=== PATIENT | male | born 1985 | race Caucasian/White ===

== ENCOUNTER 2023-11-08 11:20 | Emergency (ER) | payer OTHER ==
[~2023-11-08] VITALS: Ht 177.8 cm; Wt 101.0 kg
[2023-11-08 11:23] VITALS: BP 116/67; PULSE 115; RESP 16; TEMP 98.2; O2SAT 98
[2023-11-08] MEDS ORDERED: KETOROLAC 30MG/ML VIAL IM ONE (12:00)
== END 2023-11-08 16:35 | disposition left against medical advice (07) ==
LOC: ER 11:20
DX: M25.561 Pain in right knee (principal); F10.20 Alcohol dependence, uncomplicated; Y90.9 Presence of alcohol in blood, level not specified
CPT/HCPCS: 99283

== ENCOUNTER 2023-11-08 15:10 | Emergency (ER) | payer MEDICAID, OTHER ==
[~2023-11-08] VITALS: Ht 182.9 cm; Wt 100.0 kg
[2023-11-08 15:13] VITALS: BP 115/67; PULSE 105; RESP 16; TEMP 98; O2SAT 95
== END 2023-11-09 00:12 | disposition left against medical advice (07) ==
LOC: ER 15:10
DX: R07.89 Other chest pain (principal); Z53.21 Procedure and treatment not carried out due to patient leaving prior to being seen by health care provider

== ENCOUNTER 2023-11-09 09:37 | Emergency (ER) | payer MEDICAID, OTHER ==
[~2023-11-09] VITALS: Ht 172.7 cm; Wt 85.0 kg
[2023-11-09 09:39] VITALS: BP 127/76; PULSE 112; RESP 16; TEMP 97.5; O2SAT 94
== END 2023-11-09 12:15 | disposition left against medical advice (07) ==
LOC: ER 09:37
DX: R06.02 Shortness of breath (principal); R07.9 Chest pain, unspecified; Z53.21 Procedure and treatment not carried out due to patient leaving prior to being seen by health care provider
CPT/HCPCS: 93005

== ENCOUNTER 2023-11-25 20:46 | Emergency (ER) | payer OTHER ==
[~2023-11-25] VITALS: Ht 177.8 cm; Wt 80.0 kg
[2023-11-25 20:49] VITALS: O2SAT 98
[2023-11-25] MEDS: KETOROLAC 30MG/ML VIAL IM ONE (22:53)
[2023-11-25] MEDS: ACETAMINOPHEN 325MG TABLET PO ONE (22:53)
[2023-11-26 00:18] LABS: CHLORIDE 109 mEq/L (98-107); POTASSIUM 3.6 mEq/L (3.5-5.1); SODIUM 146 mEq/L (136-145)
[2023-11-26 00:19] LABS: CALCIUM 8.3 mg/dL (8.7-10.4); CARBON DIOXIDE 29 mEq/L (21-32)
[2023-11-26 00:20] LABS: HEMOGLOBIN. 8.4 g/dL (14.0-18.0); MEAN CORPUSCULAR HEMOGLOBIN 29.4 pg (28.0-32.0); MEAN CORPUSCULAR HGB CONC 33.7 g/dL (31.0-37.0); MEAN CORPUSCULAR VOLUME 87.4 fL (80.0-94.0); MEAN PLATELET VOLUME 8.4 fl (7.4-10.4); PLATELET 100 x1000/uL (130-400); RED BLOOD CELL COUNT 2.87 mill/uL (4.7-6.1)
[2023-11-26 00:24] LABS: CREATININE 0.7 mg/dL (0.6-1.3); GLUCOSE 96 mg/dL (70-105); UREA NITROGEN BLOOD 6 mg/dL (9-23)
[2023-11-26 00:25] LABS: DIFFERENTIAL COMMENT 1
[2023-11-26 00:26] LABS: ALANINE AMINOTRANSFERASE 47 IU/L (10-49); ASPARTATE AMINOTRANSFERASE 157 IU/L (<34); BILIRUBIN TOTAL 3.3 mg/dL (0.1-1.0)
[2023-11-26 00:49] LABS: ANISOCYTOSIS 1+; PLATELET ESTIMATE DECREASED
[2023-11-26 00:53] VITALS: BP 113/71; PULSE 62; RESP 18; TEMP 37.00296; O2SAT 98
== END 2023-11-26 01:08 | disposition home or self-care (01) ==
LOC: ER 20:46
DX: S82.141A Displaced bicondylar fracture of right tibia, initial encounter for closed fracture (principal); F10.129 Alcohol abuse with intoxication, unspecified; Y90.9 Presence of alcohol in blood, level not specified; X58.XXXA Exposure to other specified factors, initial encounter; Y93.89 Activity, other specified; Y92.89 Other specified places as the place of occurrence of the external cause; Y99.8 Other external cause status
CPT/HCPCS: 99284; 80053; 85025; 36415; 73562; 96372; J1885; L1830

== ENCOUNTER 2023-11-26 17:19 | Emergency (ER) | payer OTHER ==
[~2023-11-26] VITALS: Ht 165.1 cm; Wt 77.0 kg
[2023-11-26 17:23] VITALS: BP 132/77; PULSE 104; RESP 18; TEMP 97.6; O2SAT 100
== END 2023-11-27 00:58 | disposition home or self-care (01) ==
LOC: ER 17:19
DX: M25.561 Pain in right knee (principal); F10.129 Alcohol abuse with intoxication, unspecified; Y90.9 Presence of alcohol in blood, level not specified
CPT/HCPCS: 99283

== ENCOUNTER 2023-11-27 00:22 | Emergency (ER) | payer OTHER ==
[~2023-11-27] VITALS: Ht 170.2 cm; Wt 91.0 kg
[2023-11-27 00:28] VITALS: BP 162/104; PULSE 86; O2SAT 97
[2023-11-27 01:30] VITALS: RESP 17
== END 2023-11-27 01:30 | disposition home or self-care (01) ==
LOC: ER 00:22
DX: M25.561 Pain in right knee (principal); K76.9 Liver disease, unspecified; Z86.59 Personal history of other mental and behavioral disorders
CPT/HCPCS: 99283; Z7610

== ENCOUNTER 2023-11-27 07:05 | Emergency (ER) | payer OTHER ==
[~2023-11-27] VITALS: Ht 172.7 cm; Wt 85.0 kg
[2023-11-27 07:23] VITALS: BP 140/81; PULSE 76; RESP 18; TEMP 98.4; O2SAT 98
[2023-11-27] MEDS ORDERED: IBUPROFEN 600MG TABLET PO ONE (08:00)
== END 2023-11-27 08:10 | disposition home or self-care (01) ==
LOC: ER 07:10
DX: G89.29 Other chronic pain (principal); M25.561 Pain in right knee; Z86.59 Personal history of other mental and behavioral disorders
CPT/HCPCS: 99283

== ENCOUNTER 2023-12-04 14:23 | Emergency (ER) | payer OTHER ==
[~2023-12-04] VITALS: Ht 175.3 cm; Wt 82.0 kg
[2023-12-04 14:24] VITALS: BP 115/69; PULSE 103; RESP 12; TEMP 97.8; O2SAT 98
[2023-12-04 14:56] LABS: HEMATOCRIT. 34.2 % (42.0-52.0); HEMOGLOBIN. 10.3 g/dL (14.0-18.0); MEAN CORPUSCULAR HEMOGLOBIN 29.1 pg (28.0-32.0); MEAN CORPUSCULAR HGB CONC 30.2 g/dL (31.0-37.0); MEAN CORPUSCULAR VOLUME 96.4 fL (80.0-94.0); PLATELET 89 x1000/uL (130-400); RED BLOOD CELL COUNT 3.55 mill/uL (4.7-6.1); RED CELL DISTRIBUTION WIDTH 21.5 % (11.6-14.6)
[2023-12-04 14:57] LABS: DIFFERENTIAL COMMENT 1
[2023-12-04 14:59] LABS: CHLORIDE 103 mEq/L (98-107); POTASSIUM 4.2 mEq/L (3.5-5.1); SODIUM 132 mEq/L (136-145)
[2023-12-04 15:00] LABS: CARBON DIOXIDE 22 mEq/L (21-32)
[2023-12-04 15:01] LABS: CALCIUM 8.6 mg/dL (8.7-10.4)
[2023-12-04 15:05] LABS: CREATININE 0.9 mg/dL (0.6-1.3); GLUCOSE 117 mg/dL (70-105); UREA NITROGEN BLOOD 11 mg/dL (9-23)
[2023-12-04 15:06] LABS: ETHANOL BLOOD 297 mg/dL (<10)
[2023-12-04 15:46] LABS: ANISOCYTOSIS 3+; PLATELET ESTIMATE DECREASED; TEAR DROP CELLS 1+
== END 2023-12-04 20:00 | disposition home or self-care (01) ==
LOC: ER 14:23
DX: F10.129 Alcohol abuse with intoxication, unspecified (principal); Z86.59 Personal history of other mental and behavioral disorders; Y90.8 Blood alcohol level of 240 mg/100 ml or more
CPT/HCPCS: 36415; 80048; 80320; 85025; 99283; G0480

== ENCOUNTER 2023-12-06 01:15 | Emergency (ER) | payer OTHER ==
[~2023-12-06] VITALS: Ht 177.8 cm; Wt 84.0 kg
[2023-12-06 01:21] VITALS: TEMP 97.9; O2SAT 99
[2023-12-06] MEDS ORDERED: KETOROLAC 15MG/ML VIAL IM ONE (02:00)
[2023-12-06 02:13] LABS: HEMATOCRIT. 29.5 % (42.0-52.0); HEMOGLOBIN. 9.5 g/dL (14.0-18.0); MEAN CORPUSCULAR HGB CONC 32.1 g/dL (31.0-37.0); MEAN CORPUSCULAR VOLUME 90.3 fL (80.0-94.0); MEAN PLATELET VOLUME 9.2 fl (7.4-10.4); PLATELET 81 x1000/uL (130-400); RED BLOOD CELL COUNT 3.27 mill/uL (4.7-6.1); RED CELL DISTRIBUTION WIDTH 20.6 % (11.6-14.6); WHITE BLOOD COUNT 4.2 x1000/uL (4.5-11.0)
[2023-12-06 02:17] LABS: DIFFERENTIAL COMMENT 1
[2023-12-06 02:27] VITALS: BP 121/69; PULSE 84; RESP 18
[2023-12-06] MEDS: KETOROLAC 15MG/ML VIAL IM NR (02:27)
[2023-12-06 02:29] LABS: CHLORIDE 106 mEq/L (98-107); POTASSIUM 4.1 mEq/L (3.5-5.1); SODIUM 140 mEq/L (136-145)
[2023-12-06 02:30] LABS: CALCIUM 8.5 mg/dL (8.7-10.4); CARBON DIOXIDE 29 mEq/L (21-32)
[2023-12-06 02:35] LABS: CREATININE 0.8 mg/dL (0.6-1.3); GLUCOSE 109 mg/dL (70-105); UREA NITROGEN BLOOD 13 mg/dL (9-23)
[2023-12-06 02:37] LABS: ALANINE AMINOTRANSFERASE 49 IU/L (10-49); ALBUMIN 3.2 g/dL (3.2-4.8); ASPARTATE AMINOTRANSFERASE 140 IU/L (<34)
[2023-12-06 02:38] LABS: BILIRUBIN TOTAL 2.9 mg/dL (0.1-1.0); PROTEIN TOTAL 7.6 g/dL (6.0-8.3)
[2023-12-06 02:45] LABS: ETHANOL BLOOD 288 mg/dL (<10)
[2023-12-06 03:10] LABS: PLATELET ESTIMATE DECREASED
== END 2023-12-06 04:24 | disposition home or self-care (01) ==
LOC: ER 01:15
DX: G89.29 Other chronic pain (principal); M25.561 Pain in right knee; F10.20 Alcohol dependence, uncomplicated; Y90.8 Blood alcohol level of 240 mg/100 ml or more
CPT/HCPCS: 80053; 80320; 85025; 36415; 99283; J1885; G0480

== ENCOUNTER 2023-12-14 23:27 | Emergency (ER) | payer OTHER ==
[~2023-12-14] VITALS: Ht 172.7 cm; Wt 105.0 kg
[2023-12-14 23:28] VITALS: TEMP 98.3; O2SAT 98
[2023-12-15 00:46] VITALS: BP 111/75; PULSE 90; RESP 13; O2SAT 95
== END 2023-12-15 01:29 | disposition home or self-care (01) ==
LOC: ER 23:27
DX: M25.561 Pain in right knee (principal); F10.20 Alcohol dependence, uncomplicated; Y90.9 Presence of alcohol in blood, level not specified
CPT/HCPCS: 99283

== ENCOUNTER 2023-12-15 19:44 | Emergency (ER) | payer OTHER ==
[~2023-12-15] VITALS: Ht 177.8 cm; Wt 100.0 kg
[2023-12-15 19:47] VITALS: BP 124/80; PULSE 94; RESP 18; TEMP 97.8; O2SAT 98
[2023-12-15 21:26] LABS: HEMATOCRIT. 32.1 % (42.0-52.0); HEMOGLOBIN. 10.3 g/dL (14.0-18.0); MEAN CORPUSCULAR HEMOGLOBIN 30.1 pg (28.0-32.0); MEAN CORPUSCULAR HGB CONC 32.1 g/dL (31.0-37.0); MEAN CORPUSCULAR VOLUME 93.8 fL (80.0-94.0); MEAN PLATELET VOLUME 9.4 fl (7.4-10.4); PLATELET 130 x1000/uL (130-400); RED BLOOD CELL COUNT 3.42 mill/uL (4.7-6.1); RED CELL DISTRIBUTION WIDTH 22.4 % (11.6-14.6); WHITE BLOOD COUNT 5.2 x1000/uL (4.5-11.0)
[2023-12-15 21:27] LABS: DIFFERENTIAL COMMENT 1
[2023-12-15 21:34] LABS: CHLORIDE 113 mEq/L (98-107); POTASSIUM 4.7 mEq/L (3.5-5.1); SODIUM 144 mEq/L (136-145)
[2023-12-15 21:35] LABS: CALCIUM 7.9 mg/dL (8.7-10.4); CARBON DIOXIDE 26 mEq/L (21-32)
[2023-12-15 21:40] LABS: CREATININE 0.8 mg/dL (0.6-1.3); ETHANOL BLOOD 300 mg/dL (<10); GLUCOSE 103 mg/dL (70-105); UREA NITROGEN BLOOD 7 mg/dL (9-23)
[2023-12-15 21:41] LABS: ALANINE AMINOTRANSFERASE 44 IU/L (10-49)
[2023-12-15 21:42] LABS: ALBUMIN 3.3 g/dL (3.2-4.8); ASPARTATE AMINOTRANSFERASE 137 IU/L (<34); BILIRUBIN DIRECT 1.5 mg/dL (<=3.0); BILIRUBIN TOTAL 2.6 mg/dL (0.1-1.0); PROTEIN TOTAL 7.7 g/dL (6.0-8.3)
[2023-12-15 22:02] LABS: PLATELET ESTIMATE NORMAL
[2023-12-16 00:51] LABS: INR 1.3; PROTHROMBIN TIME 14.1 sec (9.6-11.0)
[2023-12-16 02:42] LABS: CLARITY URINE CLEAR (CLEAR); COLOR URINE DARK YELLOW (YELLOW); GLUCOSE URINE NEGATIVE (NEGATIVE); KETONES URINE NEGATIVE (NEGATIVE); LEUKOCYTE ESTERASE URINE NEGATIVE (NEGATIVE); NITRITE URINE NEGATIVE (NEGATIVE); OCCULT BLOOD URINE NEGATIVE (NEGATIVE); PROTEIN URINE NEGATIVE (NEGATIVE); SPECIFIC GRAVITY URINE 1.018 (1.005-1.030)
[2023-12-16 03:13] LABS: *AMPHETAMINES SCREEN URINE NEGATIVE (NEGATIVE); *BARBITURATES SCREEN URINE NEGATIVE (NEGATIVE); *BENZODIAZEPINES SCREEN URINE PRESUMPTIVE POSITIVE (NEGATIVE); *COCAINE SCREEN URINE NEGATIVE (NEGATIVE); CANNABINOID URINE SCREEN NEGATIVE (NEGATIVE); ECSTASY MDMA SCREEN URINE NEGATIVE (NEGATIVE); METHADONE URINE SCREEN NEGATIVE (NEGATIVE); OPIATES URINE SCREEN NEGATIVE (NEGATIVE); PHENCYCLIDINE URINE SCREEN NEGATIVE (NEGATIVE)
== END 2023-12-16 05:35 | disposition home or self-care (01) ==
LOC: ER 19:44
DX: R53.1 Weakness (principal)
CPT/HCPCS: 36415; 73560; 80048; 80076; 80305; 80320; 81003; 85025; 99284; G0480

== ENCOUNTER 2023-12-30 00:41 | Emergency (ER) | payer OTHER ==
[~2023-12-30] VITALS: Ht 172.7 cm; Wt 79.0 kg
[~2023-12-30 00:41] MED LIST: FOLI-43 PO; LEVO25TA7 MT; MULT-624 MT; THIA100T72 PO
[2023-12-30 00:46] VITALS: BP 119/70; PULSE 95; RESP 18; TEMP 97.8; O2SAT 97
[2023-12-30] MEDS ORDERED: IBUPROFEN 800MG TABLET PO ONE (01:00)
[2023-12-30] MEDS ORDERED: IBUP-2030 MT (05:56)
== END 2023-12-30 07:00 | disposition home or self-care (01) ==
LOC: ER 01:05
DX: G89.29 Other chronic pain (principal); M25.561 Pain in right knee; W18.30XA Fall on same level, unspecified, initial encounter; Y93.89 Activity, other specified; Y92.89 Other specified places as the place of occurrence of the external cause; Y99.8 Other external cause status
CPT/HCPCS: 73562; 99283

== ENCOUNTER 2024-03-14 05:34 | Emergency (ER) | payer OTHER ==
[~2024-03-14] VITALS: Ht 177.8 cm; Wt 86.0 kg
[~2024-03-14 05:34] MED LIST changes: +ACET-2708 MT; +IBUP-2028 MT; +IBUP-2029 MT; +IBUP-2030 MT
[2024-03-14 05:36] VITALS: BP 126/82; PULSE 100; RESP 18; TEMP 98.7; O2SAT 100
== END 2024-03-14 10:46 | disposition home or self-care (01) ==
LOC: ER 05:34
DX: F10.20 Alcohol dependence, uncomplicated (principal); Z59.00 Homelessness unspecified; Z79.890 Hormone replacement therapy; Y90.9 Presence of alcohol in blood, level not specified
CPT/HCPCS: 99283

== ENCOUNTER 2024-03-17 21:44 | Emergency (ER) | payer OTHER ==
[~2024-03-17] VITALS: Ht 172.7 cm; Wt 110.0 kg
[2024-03-17 21:56] VITALS: BP 127/77; PULSE 101; RESP 16; TEMP 97.9; O2SAT 97
== END 2024-03-18 02:04 | disposition home or self-care (01) ==
LOC: ER 21:44
DX: F10.229 Alcohol dependence with intoxication, unspecified (principal); G44.209 Tension-type headache, unspecified, not intractable; Z79.890 Hormone replacement therapy; Z79.899 Other long term (current) drug therapy; Y90.9 Presence of alcohol in blood, level not specified
CPT/HCPCS: 99284

== ENCOUNTER 2024-03-19 19:35 | Emergency (ER) | payer OTHER ==
[~2024-03-19] VITALS: Ht 175.3 cm; Wt 81.0 kg
[2024-03-19 19:50] VITALS: BP 178/98; PULSE 96; RESP 16; O2SAT 99
[2024-03-19 22:23] VITALS: TEMP 100.6
[2024-03-19] MEDS: ACETAMINOPHEN 325MG TABLET PO STA (22:23)
[2024-03-20] MEDS ORDERED: ACET-2708 MT (01:21)
== END 2024-03-20 01:50 | disposition home or self-care (01) ==
LOC: ER 19:35
DX: R09.81 Nasal congestion (principal); J06.9 Acute upper respiratory infection, unspecified; E11.9 Type 2 diabetes mellitus without complications; F10.90 Alcohol use, unspecified, uncomplicated; I10 Essential (primary) hypertension; K74.60 Unspecified cirrhosis of liver; Z79.890 Hormone replacement therapy; Y90.9 Presence of alcohol in blood, level not specified
CPT/HCPCS: 71045; 99283

== ENCOUNTER 2024-04-14 20:27 | Emergency (ER) | payer OTHER ==
[~2024-04-14] VITALS: Ht 172.7 cm
[2024-04-14 20:31] VITALS: BP 129/81; PULSE 95; RESP 16; TEMP 36.7; O2SAT 100
[2024-04-14] MEDS: FOLIC ACID/VITAMIN B COMP W-C TABLET PO SCH (21:00)
[2024-04-14] MEDS: SODIUM CHLORIDE 0.9% 1,000 ML IV ONE (21:00)
[2024-04-15 01:05] LABS: BASOPHILS % 1.8 % (0.0-2.0); HEMATOCRIT. 26.9 % (42.0-52.0); LYMPHOCYTES % 29.7 % (20.0-50.0); MEAN CORPUSCULAR HEMOGLOBIN 27.7 pg (28.0-32.0); MEAN CORPUSCULAR HGB CONC 33.3 g/dL (31.0-37.0); MONOCYTES % 10.1 % (2.0-8.0); NEUTROPHILS % 47.4 % (40.0-76.0); RED BLOOD CELL COUNT 3.25 mill/uL (4.7-6.1); RED CELL DISTRIBUTION WIDTH 29.5 % (11.6-14.6)
[2024-04-15 01:08] LABS: CHLORIDE 110 mEq/L (98-107); POTASSIUM 3.7 mEq/L (3.5-5.1); SODIUM 143 mEq/L (136-145)
[2024-04-15 01:09] LABS: CARBON DIOXIDE 25 mEq/L (21-32)
[2024-04-15 01:10] LABS: CALCIUM 8.4 mg/dL (8.7-10.4)
[2024-04-15 01:14] LABS: CREATININE 0.7 mg/dL (0.6-1.3); GLUCOSE 90 mg/dL (70-105)
[2024-04-15 01:15] LABS: DIFFERENTIAL COMMENT 1; ETHANOL BLOOD 241 mg/dL (<10); UREA NITROGEN BLOOD 7 mg/dL (9-23)
[2024-04-15 01:16] LABS: AMMONIA 35 uMol/L (<32)
[2024-04-15 05:21] LABS: MEAN PLATELET VOLUME 8.7 fl (7.4-10.4); PLATELET 88 x1000/uL (130-400)
== END 2024-04-15 05:33 | disposition home or self-care (01) ==
LOC: ER 20:27
DX: F10.129 Alcohol abuse with intoxication, unspecified (principal); I10 Essential (primary) hypertension; E11.9 Type 2 diabetes mellitus without complications; E72.20 Disorder of urea cycle metabolism, unspecified; Z79.899 Other long term (current) drug therapy; Z86.59 Personal history of other mental and behavioral disorders; Y90.9 Presence of alcohol in blood, level not specified
CPT/HCPCS: 36415; 99283; 80048; 80320; 82140; 83690; 85025; J7030; Z7610 ×2; G0480

== ENCOUNTER 2024-04-16 21:13 | Emergency (ER) | payer OTHER ==
[~2024-04-16] VITALS: Ht 167.6 cm; Wt 82.0 kg
[2024-04-16 21:17] VITALS: BP 123/80; PULSE 98; RESP 14; TEMP 37.1; O2SAT 98
[2024-04-16 23:37] LABS: BASOPHILS % 1.3 % (0.0-2.0); EOSINOPHILS % 10.4 % (0.0-5.0); HEMATOCRIT. 27.8 % (42.0-52.0); HEMOGLOBIN. 9.1 g/dL (14.0-18.0); LYMPHOCYTES % 30.3 % (20.0-50.0); MEAN CORPUSCULAR HEMOGLOBIN 27.7 pg (28.0-32.0); MEAN CORPUSCULAR HGB CONC 32.8 g/dL (31.0-37.0); MEAN CORPUSCULAR VOLUME 84.5 fL (80.0-94.0); RED BLOOD CELL COUNT 3.29 mill/uL (4.7-6.1); RED CELL DISTRIBUTION WIDTH 29.5 % (11.6-14.6); WHITE BLOOD COUNT 4.5 x1000/uL (4.5-11.0)
[2024-04-16 23:38] LABS: CHLORIDE 111 mEq/L (98-107); POTASSIUM 3.5 mEq/L (3.5-5.1); SODIUM 147 mEq/L (136-145)
[2024-04-16 23:39] LABS: CALCIUM 7.7 mg/dL (8.7-10.4); CARBON DIOXIDE 27 mEq/L (21-32)
[2024-04-16 23:44] LABS: CREATININE 0.7 mg/dL (0.6-1.3); GLUCOSE 102 mg/dL (70-105)
[2024-04-16 23:46] LABS: ALANINE AMINOTRANSFERASE 35 IU/L (10-49); ALBUMIN 2.6 g/dL (3.2-4.8); ASPARTATE AMINOTRANSFERASE 124 IU/L (<34); BILIRUBIN DIRECT 1.4 mg/dL (<=3.0); BILIRUBIN TOTAL 2.4 mg/dL (0.1-1.0)
[2024-04-16 23:47] LABS: PROTEIN TOTAL 8.4 g/dL (6.0-8.3)
[2024-04-17 00:03] LABS: DIFFERENTIAL COMMENT 1
[2024-04-17 00:06] LABS: UREA NITROGEN BLOOD < 5 mg/dL (9-23)
[2024-04-17 05:24] LABS: MEAN PLATELET VOLUME 8.8 fl (7.4-10.4); PLATELET 91 x1000/uL (130-400)
== END 2024-04-17 03:31 | disposition home or self-care (01) ==
LOC: ER 21:13
DX: F10.129 Alcohol abuse with intoxication, unspecified (principal); E11.9 Type 2 diabetes mellitus without complications; I10 Essential (primary) hypertension; Z79.899 Other long term (current) drug therapy; Y90.9 Presence of alcohol in blood, level not specified
CPT/HCPCS: 36415; 80053; 80076; 85025; 99283

== ENCOUNTER 2024-09-14 01:27 | Emergency (ER) | payer OTHER ==
[~2024-09-14] VITALS: Ht 172.7 cm; Wt 100.0 kg
[~2024-09-14 01:27] MED LIST changes: +CARV3.1242 PO; +CHOL100046 PO; +COR3 PO; +DICL100G58 TP; +FURO-152 PO; +FURO40TA5 PO; +GABA300S4 PO; -IBUP-2028 MT; -IBUP-2029 MT; -IBUP-2030 MT; +LACT10SO7 PO; +LACT10SO81 MT; +MULT-1318 PO; +PANT40TA51 MT; +RIFA550T PO; +SPIR100T5 PO; +SPIR25TA6 PO; +THIA100T88 PO; +VITA100T PO
[2024-09-14 01:38] VITALS: O2SAT 99
[2024-09-14 05:45] LABS: HEMATOCRIT. 32.3 % (42.0-52.0); HEMOGLOBIN. 10.7 g/dL (14.0-18.0); MEAN PLATELET VOLUME 9.6 fl (7.4-10.4); PLATELET 82 x1000/uL (130-400); RED BLOOD CELL COUNT 3.46 mill/uL (4.7-6.1); RED CELL DISTRIBUTION WIDTH 17.9 % (11.6-14.6)
[2024-09-14 06:00] LABS: CREATININE 0.6 mg/dL (0.6-1.3); UREA NITROGEN BLOOD 5 mg/dL (9-23)
[2024-09-14 06:26] LABS: ETHANOL BLOOD 291 mg/dL (<10)
[2024-09-14 06:58] VITALS: BP 145/95; PULSE 85; RESP 18; TEMP 36.8; O2SAT 99
[2024-09-14 08:47] LABS: BAND% 1.0 % (1.0-6.0); BASOPHILS % MANUAL 1.0 % (0.0-2.0); EOSINOPHILS % MANUAL 4.0 % (0.0-5.0); LYMPHOCYTES % MANUAL 29.0 % (20.0-50.0); MONOCYTES % MANUAL 16.0 % (2.0-8.0); NEUTROPHILS % MANUAL 49.0 % (45.0-75.0)
[2024-09-14 08:52] LABS: PLATELET ESTIMATE DECREASED
[2024-09-15] MEDS ORDERED: LACT-390 PO (05:32)
[2024-09-15] MEDS ORDERED: CONSTULOSE (05:32)
== END 2024-09-14 07:01 | disposition home or self-care (01) ==
LOC: ER 01:27
DX: F10.229 Alcohol dependence with intoxication, unspecified (principal); Z00.00 Encounter for general adult medical examination without abnormal findings; Z79.899 Other long term (current) drug therapy; Y90.8 Blood alcohol level of 240 mg/100 ml or more
CPT/HCPCS: 36415; 80048; 80307; 80320; 80329; 82550; 85025; 99283; G0480

== ENCOUNTER 2024-09-14 09:46 | Emergency (ER) | payer OTHER ==
[~2024-09-14] VITALS: Ht 177.8 cm; Wt 85.0 kg
[2024-09-14 09:48] VITALS: BP 134/74; PULSE 110; RESP 18; TEMP 37; O2SAT 98
[2024-09-14 10:25] LABS: BASOPHILS % 1.3 % (0.0-2.0); EOSINOPHILS % 6.8 % (0.0-5.0); HEMATOCRIT. 33.4 % (42.0-52.0); HEMOGLOBIN. 11.2 g/dL (14.0-18.0); LYMPHOCYTES % 24.4 % (20.0-50.0); MEAN PLATELET VOLUME 8.3 fl (7.4-10.4); MONOCYTES % 13.6 % (2.0-8.0); NEUTROPHILS % 53.9 % (40.0-76.0); PLATELET 90 x1000/uL (130-400); RED BLOOD CELL COUNT 3.62 mill/uL (4.7-6.1); RED CELL DISTRIBUTION WIDTH 17.9 % (11.6-14.6)
[2024-09-14 10:34] LABS: CREATININE 0.7 mg/dL (0.6-1.3)
[2024-09-14 10:35] LABS: ETHANOL BLOOD 258 mg/dL (<10); UREA NITROGEN BLOOD 6 mg/dL (9-23)
[2024-09-14 10:36] LABS: ASPARTATE AMINOTRANSFERASE 65 IU/L (<34)
[2024-09-14 10:37] LABS: BILIRUBIN DIRECT 1.3 mg/dL (<=3.0); BILIRUBIN TOTAL 2.8 mg/dL (0.1-1.0); PROTEIN TOTAL 7.3 g/dL (6.0-8.3)
[2024-09-15] MEDS ORDERED: CONSTULOSE (05:32)
[2024-09-15] MEDS ORDERED: LACT-390 PO (05:32)
== END 2024-09-14 11:18 | disposition left against medical advice (07) ==
LOC: ER 09:46 → ENRESERV 15:54
DX: F10.129 Alcohol abuse with intoxication, unspecified (principal); D69.6 Thrombocytopenia, unspecified; Z79.899 Other long term (current) drug therapy; Y90.8 Blood alcohol level of 240 mg/100 ml or more
CPT/HCPCS: 36415; 80048; 80076; 80320; 85025; 99283; G0480

== ENCOUNTER 2024-09-15 17:26 | Emergency (ER) | payer OTHER ==
[~2024-09-15] VITALS: Ht 170.2 cm; Wt 82.0 kg
[~2024-09-15 17:26] MED LIST changes: +CONSTULOSE; -DICL100G58 TP; -FURO40TA5 PO; +LACT-390 PO; -LACT10SO7 PO; -MULT-1318 PO; -THIA100T88 PO
[2024-09-15 17:31] VITALS: O2SAT 98
[2024-09-15] MEDS: SODIUM CHLORIDE 0.9% 1,000 ML IV ONE (17:45)
[2024-09-15 19:23] LABS: HEMATOCRIT. 28.6 % (42.0-52.0); HEMOGLOBIN. 9.8 g/dL (14.0-18.0); MEAN PLATELET VOLUME 9.2 fl (7.4-10.4); PLATELET 76 x1000/uL (130-400); RED BLOOD CELL COUNT 3.15 mill/uL (4.7-6.1); RED CELL DISTRIBUTION WIDTH 17.4 % (11.6-14.6)
[2024-09-15 19:25] LABS: CREATININE 0.8 mg/dL (0.6-1.3); UREA NITROGEN BLOOD 6 mg/dL (9-23)
[2024-09-15 19:26] LABS: TROPONIN I HIGH SENSITIVITY < 4 ng/L (3.0-53)
[2024-09-15 19:45] LABS: EOSINOPHILS % MANUAL 13.0 % (0.0-5.0); LYMPHOCYTES % MANUAL 25.0 % (20.0-50.0); MONOCYTES % MANUAL 12.0 % (2.0-8.0); NEUTROPHILS % MANUAL 50.0 % (45.0-75.0); PLATELET ESTIMATE DECREASED
[2024-09-15 20:15] VITALS: BP 106/60; PULSE 94; RESP 16; TEMP 36.7; O2SAT 98
== END 2024-09-16 05:04 | disposition home or self-care (01) ==
LOC: ER 17:26
DX: F10.129 Alcohol abuse with intoxication, unspecified (principal); M17.11 Unilateral primary osteoarthritis, right knee; I10 Essential (primary) hypertension; Z79.899 Other long term (current) drug therapy; Y90.9 Presence of alcohol in blood, level not specified
CPT/HCPCS: 80048; 80320; 85025; 84484; 36415; 96360; 99283; J7030; G0480

== ENCOUNTER 2024-09-20 20:01 | Emergency (ER) | payer OTHER ==
[~2024-09-20] VITALS: Ht 175.3 cm; Wt 101.0 kg
[~2024-09-20 20:01] MED LIST changes: +DICL100G58 TP; +FURO40TA5 PO; +LACT10SO7 PO; +MULT-1318 PO; +THIA100T88 PO
[2024-09-20 20:09] VITALS: TEMP 36.5; O2SAT 99
[2024-09-20 23:14] VITALS: BP 143/77; PULSE 98; RESP 18
[2024-09-20] MEDS: KETOROLAC 15MG/ML VIAL IM ONE (23:14)
[2024-09-20] MEDS ORDERED: NAPR-1176 MT (23:25)
== END 2024-09-21 00:56 | disposition home or self-care (01) ==
LOC: ER 20:01
DX: G89.29 Other chronic pain (principal); M25.561 Pain in right knee; I10 Essential (primary) hypertension; F10.90 Alcohol use, unspecified, uncomplicated; Z79.1 Long term (current) use of non-steroidal anti-inflammatories (NSAID); Z79.890 Hormone replacement therapy; Z79.899 Other long term (current) drug therapy; Y90.9 Presence of alcohol in blood, level not specified
CPT/HCPCS: 99283; 96372; J1885

== ENCOUNTER 2024-09-22 16:46 | Emergency (ER) | payer OTHER ==
[~2024-09-22] VITALS: Ht 172.7 cm; Wt 78.0 kg
[~2024-09-22 16:46] MED LIST changes: +NAPR-1176 MT
[2024-09-22 16:51] VITALS: BP 123/74; PULSE 103; RESP 18; TEMP 37.1; O2SAT 96
== END 2024-09-22 22:50 | disposition home or self-care (01) ==
LOC: ER 16:46
DX: F10.129 Alcohol abuse with intoxication, unspecified (principal); Z79.899 Other long term (current) drug therapy; Z88.5 Allergy status to narcotic agent; Y90.8 Blood alcohol level of 240 mg/100 ml or more
CPT/HCPCS: 36415; 80320; 99283; G0480

== ENCOUNTER 2024-09-22 21:40 | Emergency (ER) | payer OTHER ==
[~2024-09-22] VITALS: Ht 177.8 cm; Wt 84.0 kg
[2024-09-22 21:56] VITALS: O2SAT 99
[2024-09-22 22:02] VITALS: BP 140/91; PULSE 104; RESP 18; TEMP 36.8; O2SAT 99
[2024-09-22] MEDS ORDERED: IBUPROFEN 600MG TABLET PO ONE (23:00)
== END 2024-09-22 23:35 | disposition left against medical advice (07) ==
LOC: ER 21:40
DX: M54.9 Dorsalgia, unspecified (principal); F10.129 Alcohol abuse with intoxication, unspecified; Z79.899 Other long term (current) drug therapy; Z88.5 Allergy status to narcotic agent
CPT/HCPCS: 99282

== ENCOUNTER 2024-09-24 11:40 | Emergency (ER) | payer OTHER ==
[~2024-09-24] VITALS: Ht 172.7 cm; Wt 84.0 kg
[2024-09-24 11:43] VITALS: O2SAT 98
[2024-09-24 12:13] VITALS: BP 147/87; PULSE 109; RESP 21; TEMP 36.8; O2SAT 98
[2024-09-24 12:40] LABS: HEMATOCRIT. 25.0 % (42.0-52.0); HEMOGLOBIN. 8.4 g/dL (14.0-18.0); MEAN PLATELET VOLUME 8.9 fl (7.4-10.4); PLATELET 67 x1000/uL (130-400); RED BLOOD CELL COUNT 2.74 mill/uL (4.7-6.1); RED CELL DISTRIBUTION WIDTH 17.3 % (11.6-14.6)
[2024-09-24 12:59] LABS: CREATININE 0.7 mg/dL (0.6-1.3); INR 1.5
[2024-09-24 13:00] LABS: ETHANOL BLOOD 300 mg/dL (<10); TROPONIN I HIGH SENSITIVITY 5 ng/L (3.0-53); UREA NITROGEN BLOOD < 5 mg/dL (9-23)
[2024-09-24 13:02] LABS: ASPARTATE AMINOTRANSFERASE 101 IU/L (<34); BILIRUBIN DIRECT 1.4 mg/dL (<=3.0); BILIRUBIN TOTAL 3.0 mg/dL (0.1-1.0); PROTEIN TOTAL 6.1 g/dL (6.0-8.3)
[2024-09-24 13:05] LABS: BAND% 6.0 % (1.0-6.0); EOSINOPHILS % MANUAL 10.0 % (0.0-5.0); LYMPHOCYTES % MANUAL 16.0 % (20.0-50.0); MONOCYTES % MANUAL 13.0 % (2.0-8.0); NEUTROPHILS % MANUAL 55.0 % (45.0-75.0); PLATELET ESTIMATE DECREASED
[2024-09-24 13:16] LABS: *AMPHETAMINES SCREEN URINE NEGATIVE (NEGATIVE); *BARBITURATES SCREEN URINE NEGATIVE (NEGATIVE); *BENZODIAZEPINES SCREEN URINE PRESUMPTIVE POSITIVE (NEGATIVE); *COCAINE SCREEN URINE NEGATIVE (NEGATIVE)
[2024-09-24 13:17] LABS: CANNABINOID URINE SCREEN NEGATIVE (NEGATIVE); ECSTASY MDMA SCREEN URINE NEGATIVE (NEGATIVE); METHADONE URINE SCREEN NEGATIVE (NEGATIVE); OPIATES URINE SCREEN NEGATIVE (NEGATIVE); PHENCYCLIDINE URINE SCREEN NEGATIVE (NEGATIVE)
[2024-09-24] MEDS: POTASSIUM CHLORIDE 20MEQ/PACKET PO ONE (14:41)
[2024-09-24 15:08] LABS: TROPONIN I HIGH SENSITIVITY 4 ng/L (3.0-53)
== END 2024-09-24 16:24 | disposition home or self-care (01) ==
LOC: ER 11:40 → CMPBEDREQ 09-25 22:27
DX: F10.129 Alcohol abuse with intoxication, unspecified (principal); R07.89 Other chest pain; E87.6 Hypokalemia; Z79.1 Long term (current) use of non-steroidal anti-inflammatories (NSAID); Z79.890 Hormone replacement therapy; Z79.899 Other long term (current) drug therapy; Z88.5 Allergy status to narcotic agent; Y90.8 Blood alcohol level of 240 mg/100 ml or more
CPT/HCPCS: 36415; 71045; 80048; 80076; 80305; 80320; 84484; 85025; 93005; 99285; A4606; G0480

== ENCOUNTER 2024-09-26 20:29 | Emergency (ER) | payer OTHER ==
[~2024-09-26] VITALS: Ht 172.7 cm; Wt 100.0 kg
[2024-09-26 20:37] VITALS: TEMP 36.7; O2SAT 97
[2024-09-26 21:12] VITALS: BP 140/85; PULSE 90; RESP 14; O2SAT 98
== END 2024-09-27 01:09 | disposition home or self-care (01) ==
LOC: ER 20:29
DX: F10.229 Alcohol dependence with intoxication, unspecified (principal); Z79.899 Other long term (current) drug therapy; Z79.890 Hormone replacement therapy; Z79.1 Long term (current) use of non-steroidal anti-inflammatories (NSAID); Z88.5 Allergy status to narcotic agent; Y08.89XA Assault by other specified means, initial encounter; Y93.89 Activity, other specified; Y92.89 Other specified places as the place of occurrence of the external cause; Y99.8 Other external cause status; Y90.9 Presence of alcohol in blood, level not specified
CPT/HCPCS: 71045; 99284

== ENCOUNTER 2024-09-29 03:51 | Emergency (ER) | payer OTHER ==
[~2024-09-29] VITALS: Ht 177.8 cm; Wt 100.0 kg
[2024-09-29 03:58] VITALS: TEMP 36.9; O2SAT 100
[2024-09-29] MEDS: LIDOCAINE 5% PATCH TOP SCH (05:18)
[2024-09-29] MEDS ORDERED: LIDO-53 TP (05:19)
[2024-09-29 05:21] VITALS: TEMP 98.5
[2024-09-29] MEDS: ACETAMINOPHEN 325MG TABLET PO ONE (05:21)
[2024-09-29 05:25] VITALS: BP 126/70; PULSE 85; RESP 16; O2SAT 97
== END 2024-09-29 05:31 | disposition home or self-care (01) ==
LOC: ER 03:51
DX: R07.81 Pleurodynia (principal); I10 Essential (primary) hypertension; Z88.5 Allergy status to narcotic agent; Z79.899 Other long term (current) drug therapy; Y08.02XA Assault by strike by baseball bat, initial encounter; Y93.89 Activity, other specified; Y92.89 Other specified places as the place of occurrence of the external cause; Y99.8 Other external cause status
CPT/HCPCS: 99283

== ENCOUNTER 2024-10-25 16:25 | Emergency (ER) | payer OTHER ==
[~2024-10-25] VITALS: Ht 172.7 cm; Wt 113.0 kg
[~2024-10-25 16:25] MED LIST changes: +LIDO-53 TP
[2024-10-25 16:36] VITALS: BP 142/95; PULSE 100; RESP 18; TEMP 37.4; O2SAT 99
== END 2024-10-25 16:39 | disposition left against medical advice (07) ==
LOC: ER 16:25
DX: F10.129 Alcohol abuse with intoxication, unspecified (principal); Z53.21 Procedure and treatment not carried out due to patient leaving prior to being seen by health care provider; Y90.9 Presence of alcohol in blood, level not specified

== ENCOUNTER 2024-10-25 21:49 | Emergency (ER) | payer OTHER ==
[~2024-10-25] VITALS: Ht 177.8 cm; Wt 114.0 kg
[2024-10-25 21:53] VITALS: O2SAT 98
[2024-10-25 22:47] LABS: BASOPHILS % 1.3 % (0.0-2.0); EOSINOPHILS % 4.2 % (0.0-5.0); HEMATOCRIT. 29.3 % (42.0-52.0); HEMOGLOBIN. 9.2 g/dL (14.0-18.0); LYMPHOCYTES % 28.9 % (20.0-50.0); MEAN PLATELET VOLUME 8.9 fl (7.4-10.4); MONOCYTES % 13.8 % (2.0-8.0); NEUTROPHILS % 51.8 % (40.0-76.0); PLATELET 66 x1000/uL (130-400); RED BLOOD CELL COUNT 3.34 mill/uL (4.7-6.1); RED CELL DISTRIBUTION WIDTH 18.0 % (11.6-14.6)
[2024-10-25 22:53] LABS: CREATININE 0.7 mg/dL (0.6-1.3); UREA NITROGEN BLOOD 6 mg/dL (9-23)
[2024-10-25 22:55] LABS: ASPARTATE AMINOTRANSFERASE 161 IU/L (<34); BILIRUBIN DIRECT 1.4 mg/dL (<=3.0); BILIRUBIN TOTAL 2.5 mg/dL (0.1-1.0)
[2024-10-25 22:56] LABS: PROTEIN TOTAL 6.9 g/dL (6.0-8.3)
[2024-10-25 23:17] LABS: ETHANOL BLOOD 300 mg/dL (<10)
[2024-10-26] MEDS: ACETAMINOPHEN 325MG TABLET PO ONE (00:18)
[2024-10-26 00:20] VITALS: TEMP 37.2; O2SAT 98
[2024-10-26 03:08] VITALS: BP 119/77; PULSE 96; RESP 17
== END 2024-10-26 04:21 | disposition home or self-care (01) ==
LOC: ER 21:49
DX: T51.0X1A Toxic effect of ethanol, accidental (unintentional), initial encounter (principal); G89.29 Other chronic pain; M79.604 Pain in right leg; Z79.1 Long term (current) use of non-steroidal anti-inflammatories (NSAID); Z79.890 Hormone replacement therapy; Z79.899 Other long term (current) drug therapy; Z88.5 Allergy status to narcotic agent; Y90.8 Blood alcohol level of 240 mg/100 ml or more
CPT/HCPCS: 80076; 80048; 80320; 83735; 85025; 36415; 71045; 73562; 73590; 73610; 93970; 99284; Z7610; A4606; G0480

== ENCOUNTER 2024-10-26 15:36 | Emergency (ER) | payer OTHER ==
[~2024-10-26] VITALS: Ht 180.3 cm; Wt 91.0 kg
[2024-10-26 15:45] VITALS: BP 136/80; PULSE 80; RESP 18; TEMP 36.9; O2SAT 98
[2024-10-26 17:22] LABS: BASOPHILS % 1.4 % (0.0-2.0); EOSINOPHILS % 4.7 % (0.0-5.0); HEMATOCRIT. 27.7 % (42.0-52.0); HEMOGLOBIN. 8.9 g/dL (14.0-18.0); LYMPHOCYTES % 30.8 % (20.0-50.0); MEAN PLATELET VOLUME 9.0 fl (7.4-10.4); MONOCYTES % 12.1 % (2.0-8.0); NEUTROPHILS % 51.0 % (40.0-76.0); PLATELET 58 x1000/uL (130-400); RED BLOOD CELL COUNT 3.21 mill/uL (4.7-6.1); RED CELL DISTRIBUTION WIDTH 17.8 % (11.6-14.6)
[2024-10-26 17:36] LABS: CREATININE 0.7 mg/dL (0.6-1.3)
[2024-10-26 17:37] LABS: UREA NITROGEN BLOOD < 5 mg/dL (9-23)
[2024-10-26 17:38] LABS: ASPARTATE AMINOTRANSFERASE 155 IU/L (<34); BILIRUBIN DIRECT 1.4 mg/dL (<=3.0)
[2024-10-26 17:39] LABS: BILIRUBIN TOTAL 2.5 mg/dL (0.1-1.0); PROTEIN TOTAL 6.4 g/dL (6.0-8.3)
[2024-10-26 17:48] LABS: ETHANOL BLOOD 415 mg/dL (<10)
[2024-10-26] MEDS ORDERED: MAGNESIUM/ALUMINUM HYDROXIDE/SIMETHICONE 30ML UDC PO PRN (22:30)
[2024-10-26] MEDS ORDERED: IPRATROPIUM/ALBUTEROL 0.5-3(2.5)MG/3ML NEB HHN PRN (22:30)
[2024-10-26] MEDS ORDERED: ACETAMINOPHEN 325MG TABLET PO PRN ×2 (22:30)
[2024-10-26] MEDS ORDERED: DOCUSATE SODIUM 100MG CAPSULE PO PRN (22:30)
[2024-10-26] MEDS ORDERED: CLONIDINE 0.1MG TABLET PO PRN (22:30)
[2024-10-26] MEDS ORDERED: ONDANSETRON HCL 4MG/2ML INJ IV PRN (22:30)
[2024-10-26] MEDS ORDERED: HYDROCODONE/ACETAMINOPHEN 5/325MG TABLET PO PRN (22:30)
[2024-10-26] MEDS ORDERED: LORAZEPAM 0.5MG TABLET PO PRN (22:30)
[2024-10-27] MEDS ORDERED: CHLORDIAZEPOXIDE 25MG CAPSULE PO SCH (06:00)
[2024-10-27] MEDS ORDERED: MVI, ADULT NO.1 10 ML, FOLIC ACID 1 MG, THIAMINE HCL 100 MG in SODIUM CHLORIDE 0.9% 1,0... IV SCH (09:00)
[2024-10-27] MEDS ORDERED: MULTIVITAMINS,THER W-MINERALS TABLET PO SCH (09:00)
[2024-10-27] MEDS ORDERED: THIAMINE HCL 100MG TABLET PO SCH (09:00)
[2024-10-27] MEDS ORDERED: FOLIC ACID 1MG TABLET PO SCH (09:00)
== END 2024-10-27 08:24 | disposition left against medical advice (07) ==
LOC: ER 15:36 → CANBEDREQ 18:33 → ER 10-27 08:24
DX: F10.129 Alcohol abuse with intoxication, unspecified (principal); M17.11 Unilateral primary osteoarthritis, right knee; Z91.013 Allergy to seafood; Z79.899 Other long term (current) drug therapy; Z98.890 Other specified postprocedural states; Y90.8 Blood alcohol level of 240 mg/100 ml or more
CPT/HCPCS: 36415; 73562; 80048; 80076; 80320; 85025; 99284; G0480

== ENCOUNTER 2024-10-27 08:08 | Emergency (ER) | payer OTHER ==
[~2024-10-27] VITALS: Ht 177.8 cm; Wt 85.0 kg
[2024-10-27 08:11] VITALS: BP 127/76; PULSE 82; RESP 16; TEMP 37.1; O2SAT 98
[2024-10-27 08:41] LABS: BASOPHILS % 2.1 % (0.0-2.0); EOSINOPHILS % 6.3 % (0.0-5.0); HEMATOCRIT. 32.3 % (42.0-52.0); HEMOGLOBIN. 10.4 g/dL (14.0-18.0); LYMPHOCYTES % 34.8 % (20.0-50.0); MEAN PLATELET VOLUME 8.4 fl (7.4-10.4); MONOCYTES % 9.0 % (2.0-8.0); NEUTROPHILS % 47.8 % (40.0-76.0); PLATELET 62 x1000/uL (130-400); RED BLOOD CELL COUNT 3.69 mill/uL (4.7-6.1); RED CELL DISTRIBUTION WIDTH 18.0 % (11.6-14.6)
[2024-10-27 08:58] LABS: CREATININE 0.6 mg/dL (0.6-1.3); UREA NITROGEN BLOOD < 5 mg/dL (9-23)
[2024-10-27 08:59] LABS: TROPONIN I HIGH SENSITIVITY 7 ng/L (3.0-53)
== END 2024-10-27 10:40 | disposition home or self-care (01) ==
LOC: ER 08:08 → CMPBEDREQ 11:05
DX: M25.461 Effusion, right knee (principal); R60.0 Localized edema; F10.20 Alcohol dependence, uncomplicated; R06.02 Shortness of breath; Z79.899 Other long term (current) drug therapy; Z88.5 Allergy status to narcotic agent
CPT/HCPCS: 36415; 71045; 80048; 83880; 84484; 85025; 93970; 99284; A4606

== ENCOUNTER 2024-11-27 18:09 | Emergency (ER) | payer OTHER ==
[~2024-11-27] VITALS: Ht 172.7 cm; Wt 90.0 kg
[2024-11-27 18:16] VITALS: O2SAT 98
[2024-11-27 19:30] VITALS: BP 134/86; PULSE 85; RESP 16; TEMP 36.9; O2SAT 98
[2024-11-27 19:47] LABS: BASOPHILS % 1.5 % (0.0-2.0); EOSINOPHILS % 7.9 % (0.0-5.0); HEMATOCRIT. 27.9 % (42.0-52.0); HEMOGLOBIN. 9.1 g/dL (14.0-18.0); LYMPHOCYTES % 29.8 % (20.0-50.0); MONOCYTES % 12.3 % (2.0-8.0); NEUTROPHILS % 48.5 % (40.0-76.0); RED BLOOD CELL COUNT 3.42 mill/uL (4.7-6.1); RED CELL DISTRIBUTION WIDTH 19.4 % (11.6-14.6)
[2024-11-27 19:58] LABS: CREATININE 0.6 mg/dL (0.6-1.3); UREA NITROGEN BLOOD < 5 mg/dL (9-23)
[2024-11-27 20:00] LABS: ASPARTATE AMINOTRANSFERASE 188 IU/L (<34); BILIRUBIN TOTAL 2.8 mg/dL (0.1-1.0); PROTEIN TOTAL 6.8 g/dL (6.0-8.3)
[2024-11-27] MEDS ORDERED: LACTATED RINGERS 1,000 ML IV SCH (20:15)
[2024-11-27 21:25] LABS: MEAN PLATELET VOLUME 9.5 fl (7.4-10.4); PLATELET 55 x1000/uL (130-400)
== END 2024-11-27 22:04 | disposition left against medical advice (07) ==
LOC: ER 18:09
DX: F10.129 Alcohol abuse with intoxication, unspecified (principal); Z79.1 Long term (current) use of non-steroidal anti-inflammatories (NSAID); Z79.890 Hormone replacement therapy; Z79.899 Other long term (current) drug therapy; Z88.5 Allergy status to narcotic agent; Z91.199 Patient's noncompliance with other medical treatment and regimen due to unspecified reason; Y90.8 Blood alcohol level of 240 mg/100 ml or more
CPT/HCPCS: 36415; 80053; 80320; 85025; 99283; G0480

== ENCOUNTER 2024-11-27 22:24 | Emergency (ER) | payer OTHER ==
[~2024-11-27] VITALS: Ht 172.7 cm; Wt 73.0 kg
[2024-11-27 22:27] VITALS: O2SAT 100
[2024-11-27 23:07] VITALS: TEMP 36.8
[2024-11-28 00:58] LABS: HEMATOCRIT. 28.2 % (42.0-52.0); HEMOGLOBIN. 9.1 g/dL (14.0-18.0); MEAN PLATELET VOLUME 8.3 fl (7.4-10.4); RED BLOOD CELL COUNT 3.50 mill/uL (4.7-6.1); RED CELL DISTRIBUTION WIDTH 19.6 % (11.6-14.6)
[2024-11-28 01:11] LABS: CREATININE 0.7 mg/dL (0.6-1.3); UREA NITROGEN BLOOD < 5 mg/dL (9-23)
[2024-11-28 01:13] LABS: ASPARTATE AMINOTRANSFERASE 189 IU/L (<34); BILIRUBIN DIRECT 1.7 mg/dL (<=3.0); BILIRUBIN TOTAL 2.9 mg/dL (0.1-1.0); PROTEIN TOTAL 6.7 g/dL (6.0-8.3)
[2024-11-28 01:16] LABS: PLATELET 48 x1000/uL (130-400)
[2024-11-28 02:01] LABS: EOSINOPHILS % MANUAL 4.0 % (0.0-5.0); LYMPHOCYTES % MANUAL 25.0 % (20.0-50.0); MONOCYTES % MANUAL 8.0 % (2.0-8.0); NEUTROPHILS % MANUAL 63.0 % (45.0-75.0); PLATELET ESTIMATE DECREASED
[2024-11-28] MEDS: POTASSIUM CHLORIDE 20MEQ TABLET SR PO ONE (04:57)
[2024-11-28 05:00] VITALS: BP 142/96; PULSE 98; RESP 14; O2SAT 100
== END 2024-11-28 05:07 | disposition home or self-care (01) ==
LOC: ER 22:24
DX: F10.229 Alcohol dependence with intoxication, unspecified (principal); D69.6 Thrombocytopenia, unspecified; I10 Essential (primary) hypertension; Z79.890 Hormone replacement therapy; Z79.899 Other long term (current) drug therapy; Z88.5 Allergy status to narcotic agent; Y90.8 Blood alcohol level of 240 mg/100 ml or more
CPT/HCPCS: 36415; 80048; 80076; 80320; 85025; 99285; A4606; G0480

== ENCOUNTER 2024-11-28 21:23 | Emergency (ER) | payer OTHER ==
[~2024-11-28] VITALS: Ht 172.7 cm; Wt 90.0 kg
[2024-11-28 21:29] VITALS: O2SAT 98
[2024-11-28 23:13] VITALS: TEMP 36.8; O2SAT 98
[2024-11-28 23:17] VITALS: BP 145/80; PULSE 94; RESP 16
[2024-11-28] MEDS: KETOROLAC 15MG/ML VIAL IM ONE (23:17)
== END 2024-11-28 23:33 ==
LOC: ER 21:23
DX: G89.29 Other chronic pain (principal); M25.461 Effusion, right knee; K70.9 Alcoholic liver disease, unspecified; I10 Essential (primary) hypertension; F10.20 Alcohol dependence, uncomplicated; Z79.1 Long term (current) use of non-steroidal anti-inflammatories (NSAID); Z88.5 Allergy status to narcotic agent; Z79.899 Other long term (current) drug therapy; Y90.9 Presence of alcohol in blood, level not specified
CPT/HCPCS: 99283; 96372; J1885

== ENCOUNTER 2024-12-11 15:06 | Emergency (ER) | payer OTHER ==
[~2024-12-11] VITALS: Ht 165.1 cm; Wt 86.0 kg
[2024-12-11 15:12] VITALS: BP 126/66; PULSE 99; RESP 20; TEMP 36.6; O2SAT 96
[2024-12-11 16:03] LABS: BASOPHILS % 1.7 % (0.0-2.0); EOSINOPHILS % 3.9 % (0.0-5.0); HEMATOCRIT. 29.2 % (42.0-52.0); HEMOGLOBIN. 9.2 g/dL (14.0-18.0); LYMPHOCYTES % 28.8 % (20.0-50.0); MEAN PLATELET VOLUME 8.8 fl (7.4-10.4); MONOCYTES % 13.9 % (2.0-8.0); NEUTROPHILS % 51.7 % (40.0-76.0); PLATELET 86 x1000/uL (130-400); RED BLOOD CELL COUNT 3.55 mill/uL (4.7-6.1); RED CELL DISTRIBUTION WIDTH 22.3 % (11.6-14.6)
[2024-12-11 16:05] LABS: ADD RBC MORPHOLOGY YES
[2024-12-11 16:17] LABS: CREATININE 0.7 mg/dL (0.6-1.3); UREA NITROGEN BLOOD 6 mg/dL (9-23)
[2024-12-11 16:19] LABS: ASPARTATE AMINOTRANSFERASE 144 IU/L (<34); BILIRUBIN DIRECT 1.8 mg/dL (<=3.0); BILIRUBIN TOTAL 2.7 mg/dL (0.1-1.0); PROTEIN TOTAL 6.9 g/dL (6.0-8.3)
[2024-12-11 16:25] LABS: PLATELET ESTIMATE DECREASED
[2024-12-11] MEDS: DOCUSATE SODIUM 100MG CAPSULE PO ONE (17:50)
[2024-12-11 18:22] LABS: CLARITY URINE CLEAR (CLEAR); COLOR URINE YELLOW (YELLOW); GLUCOSE URINE TRACE (NEGATIVE); KETONES URINE TRACE (NEGATIVE); LEUKOCYTE ESTERASE URINE TRACE (NEGATIVE); NITRITE URINE NEGATIVE (NEGATIVE); OCCULT BLOOD URINE NEGATIVE (NEGATIVE); PH URINE 7.0 (4.5-8.0); PROTEIN URINE NEGATIVE (NEGATIVE); SPECIFIC GRAVITY URINE 1.022 (1.005-1.030); UROBILINOGEN URINE 0.2 E.U./dL (0.2-1.0)
[2024-12-11 18:49] LABS: BACTERIA URINE 2+; SQUAMOUS EPITHELIAL CELL URINE RARE /lpf (RARE/1+)
[2024-12-11 18:50] LABS: RBC URINE NONE SEEN /hpf (0-2); WBC URINE 0-2 /hpf (0-2)
== END 2024-12-11 18:56 | disposition left against medical advice (07) ==
LOC: ER 15:06
DX: F10.229 Alcohol dependence with intoxication, unspecified (principal); I10 Essential (primary) hypertension; Y90.9 Presence of alcohol in blood, level not specified; Z79.899 Other long term (current) drug therapy; Z79.890 Hormone replacement therapy; Z79.1 Long term (current) use of non-steroidal anti-inflammatories (NSAID); Z91.013 Allergy to seafood; Z88.5 Allergy status to narcotic agent
CPT/HCPCS: 36415; 80048; 80076; 80320; 81003; 85025; 99283; G0480

== ENCOUNTER 2024-12-15 14:19 | Emergency (ER) | payer OTHER ==
[~2024-12-15] VITALS: Ht 167.6 cm; Wt 80.0 kg
[~2024-12-15 14:19] MED LIST changes: -CONSTULOSE; -COR3 PO; -FURO-152 PO; -LACT-390 PO; -LACT10SO7 PO; -SPIR25TA6 PO
[2024-12-15 14:21] VITALS: BP 118/59; PULSE 117; RESP 18; TEMP 36.4; O2SAT 96
[2024-12-15 16:30] LABS: HEMATOCRIT. 26.1 % (42.0-52.0); HEMOGLOBIN. 8.6 g/dL (14.0-18.0); MEAN PLATELET VOLUME 8.5 fl (7.4-10.4); PLATELET 65 x1000/uL (130-400); RED BLOOD CELL COUNT 3.21 mill/uL (4.7-6.1); RED CELL DISTRIBUTION WIDTH 22.4 % (11.6-14.6)
[2024-12-15 16:45] LABS: CREATININE 0.9 mg/dL (0.6-1.3); UREA NITROGEN BLOOD 9 mg/dL (9-23)
[2024-12-15 16:46] LABS: ASPARTATE AMINOTRANSFERASE 90 IU/L (<34)
[2024-12-15 16:47] LABS: BILIRUBIN DIRECT 1.6 mg/dL (<=3.0); BILIRUBIN TOTAL 2.7 mg/dL (0.1-1.0); PROTEIN TOTAL 6.7 g/dL (6.0-8.3)
[2024-12-15 18:16] LABS: EOSINOPHILS % MANUAL 5.0 % (0.0-5.0); LYMPHOCYTES % MANUAL 18.0 % (20.0-50.0); MONOCYTES % MANUAL 13.0 % (2.0-8.0); NEUTROPHILS % MANUAL 64.0 % (45.0-75.0); PLATELET ESTIMATE DECREASED
== END 2024-12-15 16:55 | disposition left against medical advice (07) ==
LOC: ER 14:19 → CMPBEDREQ 12-16 07:27
DX: F10.20 Alcohol dependence, uncomplicated (principal); I10 Essential (primary) hypertension; Z79.899 Other long term (current) drug therapy; Z91.013 Allergy to seafood; Z88.5 Allergy status to narcotic agent
CPT/HCPCS: 36415; 80048; 80076; 80307; 80320; 80329; 82140; 82550; 83735; 85025; 99283; G0480

== ENCOUNTER 2024-12-20 09:15 | Emergency (ER) | payer OTHER ==
[~2024-12-20] VITALS: Ht 180.3 cm; Wt 113.0 kg
[2024-12-20 09:17] VITALS: O2SAT 97
[2024-12-20 10:53] LABS: HEMATOCRIT. 26.5 % (42.0-52.0); HEMOGLOBIN. 8.7 g/dL (14.0-18.0); MEAN PLATELET VOLUME 9.8 fl (7.4-10.4); PLATELET 77 x1000/uL (130-400); RED BLOOD CELL COUNT 3.23 mill/uL (4.7-6.1); RED CELL DISTRIBUTION WIDTH 23.8 % (11.6-14.6)
[2024-12-20 11:06] LABS: CREATININE 0.6 mg/dL (0.6-1.3); UREA NITROGEN BLOOD < 5 mg/dL (9-23)
[2024-12-20 11:08] LABS: ASPARTATE AMINOTRANSFERASE 119 IU/L (<34); BILIRUBIN DIRECT 1.8 mg/dL (<=3.0); BILIRUBIN TOTAL 3.3 mg/dL (0.1-1.0); PROTEIN TOTAL 7.0 g/dL (6.0-8.3)
[2024-12-20 11:28] VITALS: BP 114/63; PULSE 96; RESP 16; TEMP 36.8; O2SAT 97
[2024-12-20 12:03] LABS: EOSINOPHILS % MANUAL 7.0 % (0.0-5.0); LYMPHOCYTES % MANUAL 24.0 % (20.0-50.0); MONOCYTES % MANUAL 11.0 % (2.0-8.0); NEUTROPHILS % MANUAL 58.0 % (45.0-75.0); PLATELET ESTIMATE SLIGHTLY DECREASED
[2024-12-20] MEDS ORDERED: NALT50TA5 MT (17:50)
== END 2024-12-20 12:46 | disposition left against medical advice (07) ==
LOC: ER 09:15 → EDBEDREQTM 12:09 → EDBEDREQ 12:09 → ER 12:46 → CMPBEDREQ 18:41
DX: F10.129 Alcohol abuse with intoxication, unspecified (principal); I10 Essential (primary) hypertension; I67.82 Cerebral ischemia; Z79.1 Long term (current) use of non-steroidal anti-inflammatories (NSAID); Z79.890 Hormone replacement therapy; Z79.899 Other long term (current) drug therapy; Z88.5 Allergy status to narcotic agent; Z91.013 Allergy to seafood; Y90.8 Blood alcohol level of 240 mg/100 ml or more
CPT/HCPCS: 36415; 80048; 80076; 80320; 85025; 99284; G0480

== ENCOUNTER 2024-12-20 16:14 | Emergency (ER) | payer OTHER ==
[~2024-12-20] VITALS: Ht 185.4 cm; Wt 100.0 kg
[2024-12-20 16:21] VITALS: TEMP 37.3; O2SAT 98
[2024-12-20] MEDS ORDERED: NALT50TA5 MT (17:50)
[2024-12-20] MEDS: IBUPROFEN 800MG TABLET PO ONE (19:02)
[2024-12-20 19:03] VITALS: BP 111/77; PULSE 80; RESP 16; O2SAT 99
== END 2024-12-20 19:07 | disposition home or self-care (01) ==
LOC: ER 16:14
DX: M25.561 Pain in right knee (principal); F10.229 Alcohol dependence with intoxication, unspecified; M10.9 Gout, unspecified; Z79.1 Long term (current) use of non-steroidal anti-inflammatories (NSAID); Z88.5 Allergy status to narcotic agent; Z91.013 Allergy to seafood; Z79.899 Other long term (current) drug therapy; Y90.9 Presence of alcohol in blood, level not specified
CPT/HCPCS: 99283

== ENCOUNTER 2024-12-20 22:22 | Emergency (ER) | payer OTHER ==
[~2024-12-20] VITALS: Ht 172.7 cm; Wt 91.0 kg
[~2024-12-20 22:22] MED LIST changes: +NALT50TA5 MT
[2024-12-20 22:38] VITALS: TEMP 36.5; O2SAT 100
[2024-12-20 23:33] LABS: BASOPHILS % 1.9 % (0.0-2.0); EOSINOPHILS % 6.4 % (0.0-5.0); HEMATOCRIT. 26.8 % (42.0-52.0); HEMOGLOBIN. 8.7 g/dL (14.0-18.0); LYMPHOCYTES % 28.2 % (20.0-50.0); MEAN PLATELET VOLUME 8.7 fl (7.4-10.4); MONOCYTES % 13.5 % (2.0-8.0); NEUTROPHILS % 50.0 % (40.0-76.0); RED BLOOD CELL COUNT 3.31 mill/uL (4.7-6.1); RED CELL DISTRIBUTION WIDTH 23.4 % (11.6-14.6)
[2024-12-20 23:50] LABS: CREATININE 0.6 mg/dL (0.6-1.3); UREA NITROGEN BLOOD 5 mg/dL (9-23)
[2024-12-21 00:31] LABS: ADD RBC MORPHOLOGY YES; PLATELET ESTIMATE DECREASED
[2024-12-21 00:34] LABS: PLATELET 65 x1000/uL (130-400)
[2024-12-21 01:35] VITALS: BP 128/83; PULSE 78; RESP 12; O2SAT 97
== END 2024-12-21 01:39 | disposition home or self-care (01) ==
LOC: ER 22:22
DX: F10.129 Alcohol abuse with intoxication, unspecified (principal); R50.9 Fever, unspecified; Z79.1 Long term (current) use of non-steroidal anti-inflammatories (NSAID); Z88.5 Allergy status to narcotic agent; Z91.013 Allergy to seafood; Z79.899 Other long term (current) drug therapy; Y90.8 Blood alcohol level of 240 mg/100 ml or more
CPT/HCPCS: 36415; 80048; 80320; 85025; 99283; G0480

== ENCOUNTER 2024-12-21 22:44 | Emergency (ER) | payer OTHER ==
[~2024-12-21] VITALS: Ht 172.7 cm; Wt 109.0 kg
[2024-12-21 22:57] VITALS: BP 118/77; PULSE 94; RESP 18; TEMP 36.9; O2SAT 97
[2024-12-21] MEDS ORDERED: IBUPROFEN 600MG TABLET PO ONE (23:00)
== END 2024-12-21 22:54 | disposition left against medical advice (07) ==
LOC: ER 22:44
DX: F10.229 Alcohol dependence with intoxication, unspecified (principal); Z79.899 Other long term (current) drug therapy; Z79.890 Hormone replacement therapy; Z79.1 Long term (current) use of non-steroidal anti-inflammatories (NSAID); Z59.00 Homelessness unspecified; Z91.013 Allergy to seafood; Z88.5 Allergy status to narcotic agent; Y90.9 Presence of alcohol in blood, level not specified
CPT/HCPCS: 99283

== ENCOUNTER 2024-12-22 11:21 | Emergency (ER) | payer OTHER ==
[~2024-12-22] VITALS: Ht 177.8 cm; Wt 100.0 kg
[2024-12-22 11:23] VITALS: O2SAT 98
[2024-12-22 13:00] LABS: CREATININE 0.7 mg/dL (0.6-1.3); UREA NITROGEN BLOOD 6 mg/dL (9-23)
[2024-12-22 13:10] LABS: BASOPHILS % 1.7 % (0.0-2.0); EOSINOPHILS % 4.1 % (0.0-5.0); HEMATOCRIT. 24.4 % (42.0-52.0); HEMOGLOBIN. 8.0 g/dL (14.0-18.0); LYMPHOCYTES % 26.0 % (20.0-50.0); MEAN PLATELET VOLUME 10.0 fl (7.4-10.4); MONOCYTES % 14.3 % (2.0-8.0); NEUTROPHILS % 53.9 % (40.0-76.0); PLATELET 74 x1000/uL (130-400); RED BLOOD CELL COUNT 3.03 mill/uL (4.7-6.1); RED CELL DISTRIBUTION WIDTH 23.1 % (11.6-14.6)
[2024-12-22 13:18] LABS: ADD RBC MORPHOLOGY YES
[2024-12-22 13:38] VITALS: BP 125/72; PULSE 98; RESP 17; TEMP 36.9; O2SAT 98
[2024-12-22 13:59] LABS: PLATELET ESTIMATE DECREASED
== END 2024-12-22 13:40 | disposition home or self-care (01) ==
LOC: ER 11:21
DX: F10.129 Alcohol abuse with intoxication, unspecified (principal); Z79.1 Long term (current) use of non-steroidal anti-inflammatories (NSAID); Z79.899 Other long term (current) drug therapy; Z79.890 Hormone replacement therapy; Z91.013 Allergy to seafood; Z88.5 Allergy status to narcotic agent; Y90.9 Presence of alcohol in blood, level not specified
CPT/HCPCS: 36415; 80048; 80320; 85025; 99283; G0480

== ENCOUNTER 2024-12-25 15:09 | Emergency (ER) | payer OTHER ==
[~2024-12-25] VITALS: Ht 264.2 cm; Wt 90.0 kg
[2024-12-25 15:15] VITALS: BP 131/82; PULSE 89; RESP 16; TEMP 36.6; O2SAT 99
[2024-12-25] MEDS ORDERED: FOLIC ACID 1 MG, THIAMINE HCL 100 MG, MVI, ADULT NO.1 10 ML in DEXTROSE 5% WATER 1,000 ML IV ONE (15:30)
[2024-12-25 16:15] LABS: HEMATOCRIT. 23.5 % (42.0-52.0); HEMOGLOBIN. 7.6 g/dL (14.0-18.0); MEAN PLATELET VOLUME 9.2 fl (7.4-10.4); PLATELET 70 x1000/uL (130-400); RED BLOOD CELL COUNT 2.85 mill/uL (4.7-6.1); RED CELL DISTRIBUTION WIDTH 24.6 % (11.6-14.6)
[2024-12-25 16:32] LABS: CREATININE 0.8 mg/dL (0.6-1.3); UREA NITROGEN BLOOD < 5 mg/dL (9-23)
[2024-12-25 16:34] LABS: ASPARTATE AMINOTRANSFERASE 163 IU/L (<34); BILIRUBIN DIRECT 2.2 mg/dL (<=3.0)
[2024-12-25 16:35] LABS: BILIRUBIN TOTAL 3.6 mg/dL (0.1-1.0); PROTEIN TOTAL 6.5 g/dL (6.0-8.3)
[2024-12-25 16:41] LABS: EOSINOPHILS % MANUAL 4.0 % (0.0-5.0); LYMPHOCYTES % MANUAL 35.0 % (20.0-50.0); MONOCYTES % MANUAL 20.0 % (2.0-8.0); NEUTROPHILS % MANUAL 41.0 % (45.0-75.0); PLATELET ESTIMATE DECREASED
[2024-12-25] MEDS ORDERED: POTASSIUM CHLORIDE 20MEQ TABLET SR PO ONE (16:45)
[2024-12-25] MEDS ORDERED: MAGNESIUM 2 G PREMIX 50 ML IV ONE (16:45)
== END 2024-12-25 22:00 | disposition left against medical advice (07) ==
LOC: ER 15:09 → CANBEDREQ 22:03
DX: F10.229 Alcohol dependence with intoxication, unspecified (principal); E83.42 Hypomagnesemia; D61.818 Other pancytopenia; E87.6 Hypokalemia; E03.9 Hypothyroidism, unspecified; Z79.899 Other long term (current) drug therapy; Z88.5 Allergy status to narcotic agent; Z91.013 Allergy to seafood; Z79.1 Long term (current) use of non-steroidal anti-inflammatories (NSAID); Y90.9 Presence of alcohol in blood, level not specified
CPT/HCPCS: 80076; 80048; 80320; 83735; 85025; 36415; 99283; J3490 ×2; J3411; J7070; G0480

== ENCOUNTER 2024-12-25 21:57 | Emergency (ER) | payer OTHER ==
[~2024-12-25] VITALS: Ht 175.3 cm; Wt 105.0 kg
[2024-12-25 22:03] VITALS: BP 112/84; PULSE 70; RESP 16; TEMP 37; O2SAT 96
== END 2024-12-26 05:06 | disposition home or self-care (01) ==
LOC: ER 21:57
DX: F10.129 Alcohol abuse with intoxication, unspecified (principal); I10 Essential (primary) hypertension; Z88.5 Allergy status to narcotic agent; Z91.013 Allergy to seafood; Z79.1 Long term (current) use of non-steroidal anti-inflammatories (NSAID); Z79.899 Other long term (current) drug therapy; Y90.9 Presence of alcohol in blood, level not specified
CPT/HCPCS: 99283

== ENCOUNTER 2024-12-29 15:56 | Emergency (ER) | payer OTHER ==
[~2024-12-29] VITALS: Ht 177.8 cm; Wt 100.0 kg
[2024-12-29 16:01] VITALS: O2SAT 98
[2024-12-29 17:00] VITALS: BP 101/55; PULSE 100; RESP 15; TEMP 36.9; O2SAT 100
[2024-12-29] MEDS: FOLIC ACID 1 MG, THIAMINE HCL 100 MG, MVI, ADULT NO.1 10 ML in DEXTROSE 5% WATER 1,000 ML IV ONE (18:15)
[2024-12-30] MEDS ORDERED: DICL100G58 TP (23:46)
== END 2024-12-29 23:42 | disposition home or self-care (01) ==
LOC: ER 15:56 → CMPBEDREQ 12-30 08:45
DX: F10.129 Alcohol abuse with intoxication, unspecified (principal); I10 Essential (primary) hypertension; K74.60 Unspecified cirrhosis of liver; Z79.899 Other long term (current) drug therapy; Z79.890 Hormone replacement therapy; Z79.1 Long term (current) use of non-steroidal anti-inflammatories (NSAID); Z91.013 Allergy to seafood; Z88.5 Allergy status to narcotic agent; Y90.9 Presence of alcohol in blood, level not specified
CPT/HCPCS: 99283; J3490 ×2; J3411; J7070

== ENCOUNTER 2024-12-30 11:34 | Emergency (ER) | payer OTHER ==
[~2024-12-30] VITALS: Ht 170.2 cm; Wt 85.0 kg
[2024-12-30 11:40] VITALS: BP 140/67; PULSE 80; RESP 14; TEMP 36.7; O2SAT 98
[2024-12-30] MEDS ORDERED: SODIUM CHLORIDE 0.9% 1,000 ML IV ONE (12:00)
[2024-12-30] MEDS ORDERED: DICL100G58 TP (23:46)
== END 2024-12-30 14:15 | disposition left against medical advice (07) ==
LOC: ER 12:57 → CMPBEDREQ 14:55
DX: F10.229 Alcohol dependence with intoxication, unspecified (principal); Z79.899 Other long term (current) drug therapy; Z91.013 Allergy to seafood; Z88.5 Allergy status to narcotic agent; Y90.9 Presence of alcohol in blood, level not specified
CPT/HCPCS: 99283; J7030

== ENCOUNTER 2024-12-30 16:16 | Emergency (ER) | payer OTHER ==
[~2024-12-30] VITALS: Ht 177.8 cm; Wt 100.0 kg
[2024-12-30 16:19] VITALS: BP 140/80; PULSE 80; RESP 14; TEMP 36.7; O2SAT 100
[2024-12-30] MEDS ORDERED: SODIUM CHLORIDE 0.9% 1,000 ML IV ONE (16:30)
[2024-12-30 18:07] LABS: BASOPHILS % 0.6 % (0.0-2.0); EOSINOPHILS % 3.8 % (0.0-5.0); HEMATOCRIT. 26.1 % (42.0-52.0); HEMOGLOBIN. 8.4 g/dL (14.0-18.0); LYMPHOCYTES % 23.4 % (20.0-50.0); MONOCYTES % 14.4 % (2.0-8.0); NEUTROPHILS % 57.8 % (40.0-76.0); RED BLOOD CELL COUNT 3.17 mill/uL (4.7-6.1); RED CELL DISTRIBUTION WIDTH 25.9 % (11.6-14.6)
[2024-12-30 18:09] LABS: ADD RBC MORPHOLOGY YES
[2024-12-30 18:14] LABS: CREATININE 0.7 mg/dL (0.6-1.3); UREA NITROGEN BLOOD < 5 mg/dL (9-23)
[2024-12-30 18:24] LABS: MEAN PLATELET VOLUME 8.6 fl (7.4-10.4); PLATELET 53 x1000/uL (130-400)
[2024-12-30 18:25] LABS: PLATELET ESTIMATE DECREASED
[2024-12-30] MEDS ORDERED: DICL100G58 TP (23:46)
== END 2024-12-30 19:25 | disposition left against medical advice (07) ==
LOC: ER 16:16 → CMPBEDREQ 12-31 07:46
DX: F10.229 Alcohol dependence with intoxication, unspecified (principal); Z79.899 Other long term (current) drug therapy; Z91.013 Allergy to seafood; Z88.5 Allergy status to narcotic agent; Y90.8 Blood alcohol level of 240 mg/100 ml or more
CPT/HCPCS: 80048; 80320; 85025; 36415; 93005; 99284; J7030; G0480

== ENCOUNTER 2024-12-30 22:45 | Emergency (ER) | payer OTHER ==
[~2024-12-30] VITALS: Ht 177.8 cm; Wt 100.0 kg
[2024-12-30 22:52] VITALS: O2SAT 99
[2024-12-30] MEDS ORDERED: DICL100G58 TP (23:46)
[2024-12-31] MEDS: CHLORDIAZEPOXIDE 25MG CAPSULE PO ONE (00:20)
[2024-12-31] MEDS: ACETAMINOPHEN 325MG TABLET PO ONE (00:20)
[2024-12-31 00:23] VITALS: BP 117/65; PULSE 106; RESP 18; TEMP 36.6; O2SAT 99
== END 2024-12-31 00:28 | disposition home or self-care (01) ==
LOC: ER 22:54
DX: G89.29 Other chronic pain (principal); M25.552 Pain in left hip; M25.551 Pain in right hip; M25.562 Pain in left knee; M25.561 Pain in right knee; F10.229 Alcohol dependence with intoxication, unspecified; I10 Essential (primary) hypertension; Z79.1 Long term (current) use of non-steroidal anti-inflammatories (NSAID); Z79.890 Hormone replacement therapy; Z79.899 Other long term (current) drug therapy; Z88.5 Allergy status to narcotic agent; Z91.013 Allergy to seafood; Y90.9 Presence of alcohol in blood, level not specified
CPT/HCPCS: 99283

== ENCOUNTER 2024-12-31 00:43 | Emergency (ER) | payer OTHER ==
[~2024-12-31] VITALS: Ht 167.6 cm; Wt 100.0 kg
[2024-12-31] MEDS: CYCLOBENZAPRINE 10MG TABLET PO ONE (01:09)
[2024-12-31 01:12] VITALS: O2SAT 98
[2024-12-31 05:05] VITALS: BP 119/86; PULSE 95; RESP 18; TEMP 36.8; O2SAT 99
== END 2024-12-31 05:06 | disposition home or self-care (01) ==
LOC: ER 00:56
DX: M25.551 Pain in right hip (principal); I10 Essential (primary) hypertension; K74.60 Unspecified cirrhosis of liver; Z79.1 Long term (current) use of non-steroidal anti-inflammatories (NSAID); Z79.899 Other long term (current) drug therapy; Z79.890 Hormone replacement therapy; Z91.013 Allergy to seafood; Z88.5 Allergy status to narcotic agent; W19.XXXA Unspecified fall, initial encounter; Y93.89 Activity, other specified; Y92.89 Other specified places as the place of occurrence of the external cause; Y99.8 Other external cause status
CPT/HCPCS: 72192; 99284

== ENCOUNTER 2025-01-01 14:56 | Emergency (ER) | payer OTHER ==
[~2025-01-01] VITALS: Ht 177.8 cm; Wt 100.0 kg
[2025-01-01 15:02] VITALS: BP 134/72; PULSE 106; RESP 18; TEMP 36.9; O2SAT 96
[2025-01-01] MEDS ORDERED: ACETAMINOPHEN 325MG TABLET PO ONE (15:45)
== END 2025-01-01 18:06 | disposition left against medical advice (07) ==
LOC: ER 14:56
DX: S70.11XA Contusion of right thigh, initial encounter (principal); F10.20 Alcohol dependence, uncomplicated; I10 Essential (primary) hypertension; Z79.1 Long term (current) use of non-steroidal anti-inflammatories (NSAID); Z79.890 Hormone replacement therapy; Z79.899 Other long term (current) drug therapy; Z88.5 Allergy status to narcotic agent; Z88.8 Allergy status to other drugs, medicaments and biological substances; Z91.013 Allergy to seafood; Z91.148 Patient's other noncompliance with medication regimen for other reason; W19.XXXA Unspecified fall, initial encounter; Y93.89 Activity, other specified; Y92.89 Other specified places as the place of occurrence of the external cause; Y99.8 Other external cause status; Y90.9 Presence of alcohol in blood, level not specified
CPT/HCPCS: 99283

== ENCOUNTER 2025-01-08 10:29 | Emergency (ER) | payer MEDICAID, OTHER ==
[~2025-01-08] VITALS: Ht 172.7 cm; Wt 100.0 kg
[2025-01-08 10:37] VITALS: O2SAT 98
[2025-01-08] MEDS: LACTATED RINGERS 1,000 ML IV SCH (11:24)
[2025-01-08 11:27] LABS: HEMATOCRIT. 24.6 % (42.0-52.0); HEMOGLOBIN. 8.0 g/dL (14.0-18.0); RED BLOOD CELL COUNT 2.93 mill/uL (4.7-6.1); RED CELL DISTRIBUTION WIDTH 25.2 % (11.6-14.6)
[2025-01-08 11:34] LABS: CREATININE 0.9 mg/dL (0.6-1.3); UREA NITROGEN BLOOD 6 mg/dL (9-23)
[2025-01-08 11:35] LABS: TROPONIN I HIGH SENSITIVITY < 4 ng/L (3.0-53)
[2025-01-08 11:36] LABS: ASPARTATE AMINOTRANSFERASE 101 IU/L (<34); BILIRUBIN DIRECT 4.8 mg/dL (<=3.0)
[2025-01-08 11:37] LABS: BILIRUBIN TOTAL 6.8 mg/dL (0.1-1.0); PROTEIN TOTAL 6.2 g/dL (6.0-8.3)
[2025-01-08 12:34] LABS: BAND% 1.0 % (1.0-6.0); EOSINOPHILS % MANUAL 3.0 % (0.0-5.0); LYMPHOCYTES % MANUAL 10.0 % (20.0-50.0); MONOCYTES % MANUAL 17.0 % (2.0-8.0); NEUTROPHILS % MANUAL 69.0 % (45.0-75.0)
[2025-01-08 12:35] LABS: PLATELET ESTIMATE MARKEDLY DECREASED
[2025-01-08 12:36] LABS: MEAN PLATELET VOLUME 9.2 fl (7.4-10.4); PLATELET 51 x1000/uL (130-400)
[2025-01-08 13:30] LABS: TROPONIN I HIGH SENSITIVITY < 4 ng/L (3.0-53)
[2025-01-08 14:00] VITALS: BP 101/62; PULSE 96; RESP 14; TEMP 36.6; O2SAT 96
== END 2025-01-08 16:21 | disposition left against medical advice (07) ==
LOC: ER 10:29 → EDBEDREQSVC 12:51 → EDBEDREQ 12:51 → EDBEDREQTM 12:51 → ER 16:21 → CANBEDREQ 17:43
DX: R55 Syncope and collapse (principal); I95.9 Hypotension, unspecified; M79.89 Other specified soft tissue disorders; D69.6 Thrombocytopenia, unspecified; D64.9 Anemia, unspecified; R41.82 Altered mental status, unspecified; I10 Essential (primary) hypertension; Z79.1 Long term (current) use of non-steroidal anti-inflammatories (NSAID); Z79.890 Hormone replacement therapy; Z79.899 Other long term (current) drug therapy; Z88.5 Allergy status to narcotic agent; Z88.8 Allergy status to other drugs, medicaments and biological substances; Z91.013 Allergy to seafood
CPT/HCPCS: 99284; 71045; 80076; 80048; 85025; 84484; 36415; 93005; J7120; 96360

== ENCOUNTER 2025-01-15 11:06 | Emergency (ER) | payer MEDICAID, OTHER ==
[~2025-01-15] VITALS: Ht 182.9 cm; Wt 101.0 kg
[2025-01-15 11:08] VITALS: BP 113/64; PULSE 101; RESP 16; TEMP 98.5; O2SAT 97
[2025-01-15] MEDS ORDERED: SODIUM CHLORIDE 0.9% 1,000 ML IV ONE (14:30)
[2025-01-15 18:36] LABS: CREATININE 0.6 mg/dL (0.6-1.3); UREA NITROGEN BLOOD < 5 mg/dL (9-23)
[2025-01-15 18:38] LABS: ASPARTATE AMINOTRANSFERASE 118 IU/L (<34); BILIRUBIN TOTAL 4.6 mg/dL (0.1-1.0); PROTEIN TOTAL 6.4 g/dL (6.0-8.3)
[2025-01-15 18:44] LABS: HEMOGLOBIN. 8.2 g/dL (14.0-18.0)
[2025-01-15 18:47] LABS: HEMATOCRIT. 25.7 % (42.0-52.0); RED BLOOD CELL COUNT 3.00 mill/uL (4.7-6.1); RED CELL DISTRIBUTION WIDTH 24.6 % (11.6-14.6)
[2025-01-15 19:16] LABS: EOSINOPHILS % MANUAL 2.0 % (0.0-5.0); LYMPHOCYTES % MANUAL 28.0 % (20.0-50.0); MONOCYTES % MANUAL 7.0 % (2.0-8.0); NEUTROPHILS % MANUAL 63.0 % (45.0-75.0); PLATELET ESTIMATE DECREASED
[2025-01-15 19:17] LABS: MEAN PLATELET VOLUME 9.3 fl (7.4-10.4); PLATELET 90 x1000/uL (130-400)
== END 2025-01-15 20:07 | disposition left against medical advice (07) ==
LOC: ER 11:06 → EDBEDREQTM 19:52 → EDBEDREQ 19:52 → ER 20:07 → CMPBEDREQ 01-16 11:26
DX: R41.82 Altered mental status, unspecified (principal); F10.229 Alcohol dependence with intoxication, unspecified; D61.818 Other pancytopenia; M79.605 Pain in left leg; R00.0 Tachycardia, unspecified; Z59.00 Homelessness unspecified; Z79.1 Long term (current) use of non-steroidal anti-inflammatories (NSAID); Z79.890 Hormone replacement therapy; Z79.899 Other long term (current) drug therapy; Z88.5 Allergy status to narcotic agent; Z88.8 Allergy status to other drugs, medicaments and biological substances; Z91.013 Allergy to seafood; Y90.9 Presence of alcohol in blood, level not specified
CPT/HCPCS: 80053; 80320; 85025; 36415; 99283; J7030; 99284; G0480

== ENCOUNTER 2025-01-15 22:04 | Emergency (ER) | payer OTHER ==
[~2025-01-15] VITALS: Ht 182.9 cm; Wt 100.0 kg
[2025-01-15 22:13] VITALS: O2SAT 97
[2025-01-15 23:29] VITALS: BP 130/75; PULSE 86; RESP 16; TEMP 36.8; O2SAT 97
== END 2025-01-15 23:53 | disposition home or self-care (01) ==
LOC: ER 22:04
DX: R53.1 Weakness (principal); Z79.899 Other long term (current) drug therapy; Z91.013 Allergy to seafood; Z88.5 Allergy status to narcotic agent; Z88.8 Allergy status to other drugs, medicaments and biological substances
CPT/HCPCS: 99283

== ENCOUNTER 2025-01-15 23:58 | Emergency (ER) | payer MEDICAID, OTHER ==
[~2025-01-15] VITALS: Ht 177.8 cm; Wt 103.0 kg
[2025-01-16 00:45] VITALS: O2SAT 100
[2025-01-16 05:08] VITALS: BP 125/76; PULSE 79; RESP 18; TEMP 36.8; O2SAT 98
== END 2025-01-16 05:13 | disposition home or self-care (01) ==
LOC: ER 23:58
DX: G89.29 Other chronic pain (principal); Z79.899 Other long term (current) drug therapy; Z88.5 Allergy status to narcotic agent; Z88.8 Allergy status to other drugs, medicaments and biological substances; Z91.013 Allergy to seafood
CPT/HCPCS: 99282

== ENCOUNTER 2025-01-16 08:04 | Emergency (ER) | payer MEDICAID ==
[~2025-01-16] VITALS: Ht 175.3 cm; Wt 86.0 kg
[2025-01-16 08:08] VITALS: BP 146/86; PULSE 84; RESP 16; TEMP 98.6; O2SAT 96
== END 2025-01-16 13:48 | disposition left against medical advice (07) ==
LOC: ER 08:04
DX: F10.129 Alcohol abuse with intoxication, unspecified (principal); Z88.5 Allergy status to narcotic agent; Z88.8 Allergy status to other drugs, medicaments and biological substances; Z91.013 Allergy to seafood; Z79.899 Other long term (current) drug therapy; Y90.9 Presence of alcohol in blood, level not specified
CPT/HCPCS: 99283

== ENCOUNTER 2025-01-17 16:52 | Emergency (ER) | payer MEDICAID ==
[~2025-01-17] VITALS: Ht 177.8 cm; Wt 100.0 kg
[2025-01-17 16:57] VITALS: BP 152/90; PULSE 100; RESP 16; TEMP 98.1; O2SAT 99
== END 2025-01-17 20:51 | disposition home or self-care (01) ==
LOC: ER 16:52
DX: F10.229 Alcohol dependence with intoxication, unspecified (principal); Z79.899 Other long term (current) drug therapy; Z88.5 Allergy status to narcotic agent; Z88.8 Allergy status to other drugs, medicaments and biological substances; Z91.013 Allergy to seafood; Y90.9 Presence of alcohol in blood, level not specified
CPT/HCPCS: 99283

== ENCOUNTER 2025-02-03 14:41 | Emergency (ER) | payer MEDICAID, OTHER ==
[~2025-02-03] VITALS: Ht 175.3 cm; Wt 82.0 kg
[2025-02-03 14:43] VITALS: O2SAT 98
[2025-02-03 15:30] VITALS: BP 116/68; PULSE 88; RESP 16; TEMP 36.7; O2SAT 99
[2025-02-03 16:51] LABS: BASOPHILS % 1.2 % (0.0-2.0); EOSINOPHILS % 4.7 % (0.0-5.0); HEMATOCRIT. 26.8 % (42.0-52.0); HEMOGLOBIN. 8.5 g/dL (14.0-18.0); LYMPHOCYTES % 17.1 % (20.0-50.0); MONOCYTES % 12.3 % (2.0-8.0); NEUTROPHILS % 64.7 % (40.0-76.0); RED BLOOD CELL COUNT 3.10 mill/uL (4.7-6.1); RED CELL DISTRIBUTION WIDTH 23.3 % (11.6-14.6)
[2025-02-03 16:57] LABS: ADD RBC MORPHOLOGY YES
[2025-02-03 16:59] LABS: PLATELET 59 x1000/uL (130-400)
[2025-02-03 17:00] LABS: MEAN PLATELET VOLUME 9.1 fl (7.4-10.4)
[2025-02-03 17:06] LABS: CREATININE 0.8 mg/dL (0.6-1.3); UREA NITROGEN BLOOD 5 mg/dL (9-23)
[2025-02-03 17:07] LABS: ETHANOL BLOOD 279 mg/dL (<10); PROTEIN TOTAL 6.4 g/dL (6.0-8.3)
[2025-02-03 17:08] LABS: ASPARTATE AMINOTRANSFERASE 102 IU/L (<34); BILIRUBIN DIRECT 3.2 mg/dL (<=3.0)
[2025-02-03 17:09] LABS: BILIRUBIN TOTAL 4.4 mg/dL (0.1-1.0)
[2025-02-03 20:35] LABS: PLATELET ESTIMATE DECREASED
== END 2025-02-03 16:00 | disposition left against medical advice (07) ==
LOC: ER 14:54 → EDBEDREQ 16:34 → EDBEDREQTM 16:34 → CMPBEDREQ 17:51
DX: F10.229 Alcohol dependence with intoxication, unspecified (principal); Z79.890 Hormone replacement therapy; Z79.1 Long term (current) use of non-steroidal anti-inflammatories (NSAID); Z79.899 Other long term (current) drug therapy; Z91.013 Allergy to seafood; Z88.8 Allergy status to other drugs, medicaments and biological substances; Z88.5 Allergy status to narcotic agent; Y90.8 Blood alcohol level of 240 mg/100 ml or more
CPT/HCPCS: 36415; 80048; 80076; 80320; 83735; 85025; 93005; 99283; G0480